=== PATIENT | male | born 1990 | race African-American/Black ===

== ENCOUNTER 2016-07-31 00:14 | Emergency (ER) | payer SELFPAY ==
[~2016-07-31] VITALS: Ht 172.7 cm; Wt 73.0 kg
[~2016-07-31 00:14] MED LIST: ALBU6.7H INH; DOXY100T PO; MEDR4PAK3 PO
[2016-07-31 00:15] VITALS: BP 116/63; PULSE 59; RESP 16; TEMP 98; O2SAT 99
[2016-07-31] MEDS ORDERED: ALBUAER3 INH (00:32)
--- NOTE | 2016-07-31 00:32 | PD ---
HPI Chief Complaint: Respiratory Symptoms Time Seen by Provider: 00:30 Travel History International Travel<30 days: No Contact w/Intl Traveler<30days: No Traveled to known affect area: No History of Present Illness HPI 26-year-old male with history of asthma presents to the emergency department requesting a refill of his albuterol inhaler. Patient states that he lost it yesterday. Denies any chest pain or tightness. No difficulty breathing. No recent illnesses, fever, or chills. He simply wants a refill. PFSH Past Medical History Asthma: Yes Diminished Hearing: No Respiratory: Yes (ASTHMA) Social History Alcohol Use: Yes (OCC) Tobacco Use: Yes (OCC) Substance Use: No Allergies-Medications (Allergen,Severity, Reaction): Coded Allergies: No Known Allergies (Unverified , 07/31/16) Reported Meds & Prescriptions Reported Meds & Active Scripts Active Proair Hfa 8.5 GM Inh (Albuterol Sulfate) 90 Mcg/Act Aer 2 Puff INH Q4-6H PRN 108 mcg/actuation Medrol Dosepak (Methylprednisolone) 4 Mg Christ 4 Mg PO DIRECTED TAKE DIRECTED Proventil Hfa (Albuterol Sulfate) 6.7 Gm Aero 2 Puff INH Q6H PRN * SHAKE WELL BEFORE USE * Doxycycline Hyclate 100 mg (Doxycycline Hyclate) 100 Mg Tab 1 Tab PO Q12H 10 Days Review of Systems Except as stated in HPI: all other systems reviewed are Neg Physical Exam Narrative GENERAL: Well-nourished, well-developed male patient, ambulatory and in no acute distress. SKIN: Focused skin assessment warm/dry. HEAD: Normocephalic. EYES: No scleral icterus. No injection or drainage. NECK: Supple, trachea midline. No JVD or lymphadenopathy. CARDIOVASCULAR: Regular rate and rhythm without murmurs, gallops, or rubs. RESPIRATORY: Breath sounds equal bilaterally. No accessory muscle use. GASTROINTESTINAL: Abdomen soft, non-tender, nondistended. MUSCULOSKELETAL: No cyanosis, or edema. BACK: Nontender without obvious deformity. No CVA tenderness. Data Data Last Documented VS Vital Signs Date Time Temp Pulse Resp B/P Pulse Ox O2 Delivery O2 Flow Rate FiO2 07/31/16 00:15 98.0 59 16 116/63 99 MDM Medical Decision Making Medical Screen Exam Complete: Yes Emergency Medical Condition: Yes Medical Record Reviewed: Yes Differential Diagnosis Medication refill versus asthma versus asthma exacerbation versus bronchospasm Narrative Course 26-year-old male presents to emergency department for evaluation, requesting a refill of his albuterol inhaler. Patient appears well and without distress. He 'll be given a prescription for pro-air. He is encouraged to take it as directed and to follow-up with the primary care provider. He agrees to return immediately with any acute worsening of symptoms. Diagnosis Primary Impression: Asthma Qualified Code: J45.20 - Mild intermittent asthma without complication Additional Impression: Medication refill Referrals: Primary Care Physician Patient Instructions: Asthma (ED), General Instructions Additional Instructions: Take medication as prescribed Follow-up with a primary care provider Return immediately to the emergency department with any acute worsening symptoms Med/Other Pt SpecificInfo: Prescription(s) given Scripts Albuterol 8.5 GM Inh (Proair Hfa 8.5 GM Inh)90 Mcg/Act Aer2 Puff INH Q4-6H PRN ( SHORTNESS OF BREATH) #1 INHALER Ref 0 108 mcg/actuation Prov:Vita Toribio 07/31/16 Disposition: 01 DISCHARGE HOME Condition: Stable Vita Toribio July 31, 2016 00:32
== END 2016-07-31 01:17 | disposition home or self-care (01) ==
LOC: NEPK 00:14
DX: J45.909 Unspecified asthma, uncomplicated (principal); Z76.0 Encounter for issue of repeat prescription; Z72.0 Tobacco use
CPT/HCPCS: 99281

== ENCOUNTER 2017-01-08 05:20 | Emergency (ER) | payer SELFPAY ==
[~2017-01-08] VITALS: Ht 172.7 cm; Wt 70.0 kg
[~2017-01-08 05:20] MED LIST changes: +ALBUAER3 INH
[2017-01-08 05:25] VITALS: PULSE 61; RESP 20; TEMP 97.8; O2SAT 99
[2017-01-08 05:26] VITALS: BP 109/70
--- NOTE | 2017-01-08 05:40 | PD ---
HPI Chief Complaint: Respiratory Symptoms Time Seen by Provider: 05:35 Travel History International Travel<30 days: No Contact w/Intl Traveler<30days: No Traveled to known affect area: No History of Present Illness HPI 26-year-old male came to the emergency room with history of sudden onset shortness of breath about an hour ago. Patient has history of asthma. Patient says it felt like his asthma but he ran out of his inhaler. Vital signs were stable. No history of fever or chills. Patient is not a smoker. He has had multiple admissions in the past including intensive care and was intubated. He has not had any admissions this year. [facility] Past Medical History Narrative Medical List of his past medical, surgical, social and family history is reviewed from the nursing note. Asthma: Yes Diminished Hearing: No Respiratory: Yes (ASTHMA) Past Surgical History Surgical History: No Previous Surgery Social History Alcohol Use: Yes (OCC) Tobacco Use: No Substance Use: No Allergies-Medications (Allergen,Severity, Reaction): Coded Allergies: No Known Allergies (Unverified , 01/08/17) Comments No known drug allergies. Reported Meds & Prescriptions Reported Meds & Active Scripts Active Prednisone 20 Mg Tab 20 Mg PO BID 5 Days Ventolin Hfa 18 GM Inh (Albuterol Sulfate) 90 Mcg/Act Aer 2 Puff INH Q4-6H PRN Proair Hfa 8.5 GM Inh (Albuterol Sulfate) 90 Mcg/Act Aer 2 Puff INH Q4-6H PRN 108 mcg/actuation Medrol Dosepak (Methylprednisolone) 4 Mg Christ 4 Mg PO DIRECTED TAKE DIRECTED Proventil Hfa (Albuterol Sulfate) 6.7 Gm Aero 2 Puff INH Q6H PRN * SHAKE WELL BEFORE USE * Doxycycline Hyclate 100 mg (Doxycycline Hyclate) 100 Mg Tab 1 Tab PO Q12H 10 Days Narrative Medication List of home medications reviewed from the nursing note. Review of Systems Except as stated in HPI: all other systems reviewed are Neg Respiratory: Positive: Shortness of Breath, Wheezing Physical Exam Narrative GENERAL: Awake, alert, moderate distress SKIN: Focused skin assessment warm/dry. HEAD: Atraumatic. Normocephalic. EYES: Pupils equal and round. No scleral icterus. No injection or drainage. ENT: No nasal bleeding or discharge. Mucous membranes pink and moist. NECK: Trachea midline. No JVD. CARDIOVASCULAR: Regular rate and rhythm. No murmur appreciated. RESPIRATORY: Decreased air entry bilaterally with end expiratory wheeze. Intercostal retraction GASTROINTESTINAL: Abdomen soft, non-tender, nondistended. Hepatic and splenic margins not palpable. MUSCULOSKELETAL: No obvious deformities. No clubbing. No cyanosis. No edema. NEUROLOGICAL: Awake and alert. No obvious cranial nerve deficits. Motor grossly within normal limits. Normal speech. PSYCHIATRIC: Appropriate mood and affect; insight and judgment normal. Data Data Last Documented VS Orders Orders Ecg Monitoring (01/08/17 05:43) Iv Access Insert/Monitor (01/08/17 05:43) Oximetry (01/08/17 05:43) Oxygen Administration (01/08/17 05:43) Prednisone (Deltasone) (01/08/17 05:45) Albuterol-Ipratropium Neb (Duoneb Neb) (01/08/17 05:45) Sodium Chloride 0.9% Flush (Ns Flush) (01/08/17 05:45) Ed Discharge Order (01/08/17 07:21) [facility] Medical Decision Making Medical Screen Exam Complete: Yes Emergency Medical Condition: Yes Medical Record Reviewed: Yes Differential Diagnosis Acute asthma exacerbation Narrative Course 6:06 AM patient was given 3 duo nebs [id number] and by mouth prednisone. I' ll reassess him in a bit. 7:19 AM patient says he feels much better. Oxygen saturation is 98%. Chest sounds clear with good air entry bilaterally. I'll discharge him home. Procedures EKG Prior to Arrival: No Diagnosis Primary Impression: Acute asthma exacerbation Qualified Codes: J45.901 - Unspecified asthma with (acute) exacerbation Referrals: Primary Care Physician 2 days Additional Instructions: Return to the ER if the condition worsens or any other new concerns. Otherwise follow-up with your primary care. Take 2 puffs of albuterol inhaler every 4-6 hours till symptoms are gone. Take the medication as per the prescription direction. Follow-up with your primary care. Med/Other Pt SpecificInfo: Prescription(s) given Scripts Prednisone (Prednisone) 20 Mg Tab 20 MG PO BID for 5 Days, #10 TAB 0 Refills Prov: Terrence Neville MD 01/08/17 Albuterol 18 GM Inh (Ventolin Hfa 18 GM Inh) 90 Mcg/Act Aer 2 PUFF INH Q4-6H Y for SHORTNESS OF BREATH, #1 INHALER 0 Refills Prov: Terrence Neville MD 01/08/17 Disposition: 01 DISCHARGE HOME Condition: Stable Terrence Neville MD Jan 08, 2017 05:40
[2017-01-08] MEDS ORDERED: SODIUM CHLORIDE 0.9% FLUSH 10 ML FLUSH IVF PRN (05:45)
[2017-01-08] MEDS ORDERED: predniSONE 20 MG TAB PO ONE (05:45)
[2017-01-08] MEDS: RESP: ALBUTEROL 2.5 MG/IPRATROPIUM 0.5 MG NEB (SCH) INH ×2 (05:56→05:57)
[2017-01-08] MEDS ORDERED: VENTAER INH (07:21)
[2017-01-08] MEDS ORDERED: PRED20 PO (07:21)
== END 2017-01-08 07:28 | disposition home or self-care (01) ==
LOC: NEPE 05:20
DX: J45.901 Unspecified asthma with (acute) exacerbation (principal); Z79.899 Other long term (current) drug therapy
CPT/HCPCS: 94640; 94664; 99284

== ENCOUNTER 2017-02-24 19:42 | Emergency (ER) | payer SELFPAY ==
[~2017-02-24 19:42] MED LIST changes: +PRED20 PO; +VENTAER INH
[2017-02-24 19:44] VITALS: BP 128/81; PULSE 98; RESP 18; TEMP 99.1; O2SAT 96
--- NOTE | 2017-02-24 20:13 | PD ---
HPI Chief Complaint: Respiratory Symptoms Time Seen by Provider: 19:59 Travel History International Travel<30 days: No Contact w/Intl Traveler<30days: No Traveled to known affect area: No History of Present Illness HPI PATIENT HAS HAD PROD COUGH OF YELLOW SPUTUM OVER LAST 2 DAYS, IS NOT IMPROVING, AND TODAY DEVELOPED CHILLS, AND A FEVER AT HOME. ALL:DENIES PMHX:ASTHMA PSHX:DENIES PFSH Past Medical History Asthma: Yes Diminished Hearing: No Respiratory: Yes (ASTHMA) Past Surgical History Surgical History: No Previous Surgery Social History Alcohol Use: Yes (OCC) Tobacco Use: No Substance Use: No Allergies-Medications (Allergen,Severity, Reaction): Coded Allergies: No Known Allergies (Unverified Allergy, Unknown, 02/24/17) Reported Meds & Prescriptions Reported Meds & Active Scripts Active Prednisone 20 Mg Tab 20 Mg PO BID 5 Days Ventolin Hfa 18 GM Inh (Albuterol Sulfate) 90 Mcg/Act Aer 2 Puff INH Q4-6H PRN Proair Hfa 8.5 GM Inh (Albuterol Sulfate) 90 Mcg/Act Aer 2 Puff INH Q4-6H PRN 108 mcg/actuation Medrol Dosepak (Methylprednisolone) 4 Mg Christ 4 Mg PO DIRECTED TAKE DIRECTED Proventil Hfa (Albuterol Sulfate) 6.7 Gm Aero 2 Puff INH Q6H PRN * SHAKE WELL BEFORE USE * Doxycycline Hyclate 100 mg (Doxycycline Hyclate) 100 Mg Tab 1 Tab PO Q12H 10 Days Review of Systems Except as stated in HPI: all other systems reviewed are Neg General / Constitutional: Positive: Fever, Chills Eyes: No: Visual changes HENT: No: Headaches Cardiovascular: No: Chest Pain or Discomfort Respiratory: Positive: Cough Gastrointestinal: No: Abdominal Pain Genitourinary: No: Dysuria Musculoskeletal: No: Pain Skin: No Rash Neurologic: No: Weakness Psychiatric: No: Depression Endocrine: No: Polydipsia Hematologic/Lymphatic: No: Easy Bruising Physical Exam Narrative GENERAL: SKIN: Warm and dry. HEAD: Atraumatic. Normocephalic. EYES: Pupils equal and round. No scleral icterus. No injection or drainage. ENT: No nasal bleeding or discharge. Mucous membranes pink and moist. NECK: Trachea midline. No JVD. CARDIOVASCULAR: Regular rate and rhythm. RESPIRATORY: No accessory muscle use. Clear to auscultation. Breath sounds equal bilaterally. MILD WHEEZING GASTROINTESTINAL: Abdomen soft, non-tender, nondistended. Hepatic and splenic margins not palpable. MUSCULOSKELETAL: Extremities without clubbing, cyanosis, or edema. No obvious deformities. NEUROLOGICAL: Awake and alert. No obvious cranial nerve deficits. Motor grossly within normal limits. Five out of 5 muscle strength in the arms and legs. Normal speech. PSYCHIATRIC: Appropriate mood and affect; insight and judgment normal. Data Data Last Documented VS Vital Signs Date Time Temp Pulse Resp B/P (MAP) Pulse Ox O2 Delivery O2 Flow Rate FiO2 02/24/17 20:57 100.3 02/24/17 20:28 100 Nasal Cannula 4.00 02/24/17 20:01 28 02/24/17 19:44 98 Orders Orders Ecg Monitoring (02/24/17 20:03) Oximetry (02/24/17 20:03) Oxygen Administration (02/24/17 20:03) Albuterol Neb (Albuterol Neb) (02/24/17 20:15) Budesonide Neb (Pulmicort Respule Neb) (02/24/17 20:15) Chest, Pa & Lat (02/24/17 20:03) Levofloxacin (Levaquin) (02/24/17 21:30) MDM Medical Decision Making Medical Screen Exam Complete: Yes Emergency Medical Condition: Yes Medical Record Reviewed: Yes Interpretation(s) INITIAL PULSE OX ON RA READ NORMAL AT 96% WITH AN EXCELLENT PLETH WAVE Differential Diagnosis BRONCHITIS V PNA V ASTHMA EXACERBATION Narrative Course ALTHOUGH CXR NEG FOR CONSOLIDATION, CLINICALLY C/W EARLY PNA, WILL D/C ON ABX, NEBULIZER AND INHALER Diagnosis Primary Impression: Pneumonitis Additional Impression: Asthma exacerbation Qualified Codes: J45.901 - Unspecified asthma with (acute) exacerbation Patient Instructions: Asthma (ED), General Instructions, Pneumonitis (ED) Scripts Budesonide Neb (Budesonide Neb) 0.5 Mg/2 Ml Neb 0.5 MG NEB DAILY NEB for Breathing Treatment, #3 NEBULE 0 Refills Prov: Christopher Rogel MD 02/24/17 Albuterol 18 GM Inh (Ventolin Hfa 18 GM Inh) 90 Mcg/Act Aer 2 PUFF INH Q4-6H Y for SHORTNESS OF BREATH, #1 INHALER 0 Refills Prov: Christopher Rogel MD 02/24/17 Albuterol Neb (Albuterol Neb) 2.5 Mg/3 Ml Neb 2.5 MG NEB Q4HR NEB for Breathing Treatment, #60 NEBULE 0 Refills While awake Prov: Christopher Rogel MD 02/24/17 Ciprofloxacin (Cipro) 500 Mg Tab 500 MG PO BID for Infection for 7 Days, #14 TAB 0 Refills Prov: Christopher Rogel MD 02/24/17 Disposition: 01 DISCHARGE HOME Condition: Stable Christopher Rogel MD Feb 24, 2017 20:13
[2017-02-24] MEDS ORDERED: RESP: BUDESONIDE 0.5 MG/2 ML NEB NEB ONE (20:15)
[2017-02-24 20:28] VITALS: O2SAT 100
[2017-02-24] MEDS: RESP: ALBUTEROL 2.5 MG/3 ML NEB (SCH) INH ×2 (20:28→20:29)
[2017-02-24 20:57] VITALS: TEMP 100.3
[2017-02-24] MEDS ORDERED: LEVOFLOXACIN 750 MG TAB PO ONE (21:30)
--- NOTE | 2017-02-24 21:33 | RADRPT ---
EXAM DATE/TIME: 02/24/2017 21:03 [place] COMPARISON: No previous studies available for comparison. INDICATIONS : Short of breath. MEDICAL HISTORY : None. SURGICAL HISTORY : None. ENCOUNTER: Initial ACUITY: 1 day PAIN SCORE: 0/10 LOCATION: Bilateral chest FINDINGS: PA and lateral views of the chest demonstrate the lungs to be symmetrically aerated without evidence of mass, infiltrate or effusion. The cardiomediastinal contours are unremarkable. Osseous structure s are intact. CONCLUSION: 1. No acute findings. Tristian Bravo MD on February 24, 2017 at 21:30 Board Certified Radiologist. This report was verified electronically.
[2017-02-24 21:39] VITALS: TEMP 98.9
[2017-02-24] MEDS ORDERED: VENTAER INH (21:42)
[2017-02-24] MEDS ORDERED: CIPR-9 PO (21:42)
[2017-02-24] MEDS ORDERED: ALBU0.08 NEB (21:42)
[2017-02-24] MEDS ORDERED: BUDE0.5S NEB (21:42)
[2017-02-24 22:28] VITALS: BP 92/53; PULSE 120; RESP 18; O2SAT 100
== END 2017-02-24 22:31 | disposition home or self-care (01) ==
LOC: NEPD 19:42
DX: J18.9 Pneumonia, unspecified organism (principal); J45.901 Unspecified asthma with (acute) exacerbation
CPT/HCPCS: 71020; 94640; 94664; 99284; J7613; J7626

== ENCOUNTER 2017-03-24 04:43 | Emergency (ER) | payer SELFPAY ==
[~2017-03-24] VITALS: Ht 170.2 cm; Wt 72.0 kg
[~2017-03-24 04:43] MED LIST changes: +ALBU0.08 NEB; +BUDE0.5S NEB; +CIPR-9 PO
[2017-03-24 04:45] VITALS: BP 141/58; PULSE 68; RESP 16; TEMP 97.8; O2SAT 97
[2017-03-24 04:56] VITALS: RESP 17; O2SAT 97
[2017-03-24] MEDS ORDERED: ALBU0.08 NEB (05:00)
[2017-03-24] MEDS ORDERED: VENTAER INH (05:00)
[2017-03-24] MEDS ORDERED: PRED20 PO (05:00)
[2017-03-24] MEDS ORDERED: predniSONE 50 MG TAB PO ONE (05:00)
--- NOTE | 2017-03-24 05:00 | PD ---
HPI Chief Complaint: Respiratory Symptoms Time Seen by Provider: 04:55 Travel History International Travel<30 days: No Contact w/Intl Traveler<30days: No Traveled to known affect area: No History of Present Illness HPI 26-year-old male with history of asthma presents to the emergency department for complaint of shortness of breath. Symptoms been present this evening. Patient is out of his inhaler. Patient does not voice any other concerns or complaints. No productive cough. No fever. No chest pain. No report of nausea vomiting abdominal pain or flank pain. Patient is a nonsmoker. No substance use. Patient needs medication refill. PFSH Past Medical History Narrative Medical asthma; no tobacco use; nursing notes reviewed Asthma: Yes Diminished Hearing: No Respiratory: Yes (ASTHMA) Immunizations Current: Yes Tetanus Vaccination: > 5 Years Influenza Vaccination: No Social History Alcohol Use: Yes (OCC) Tobacco Use: No Substance Use: No Allergies-Medications (Allergen,Severity, Reaction): Coded Allergies: No Known Allergies (Unverified Allergy, Unknown, 03/24/17) Reported Meds & Prescriptions Reported Meds & Active Scripts Active Ventolin Hfa 18 GM Inh (Albuterol Sulfate) 90 Mcg/Act Aer 2 Puff INH Q4-6H PRN Albuterol Neb (Albuterol Sulfate) 2.5 Mg/3 Ml Neb 2.5 Mg NEB Q4HR NEB PRN Prednisone 20 Mg Tab 20 Mg PO DAILY Budesonide Neb 0.5 Mg/2 Ml Neb 0.5 Mg NEB DAILY NEB Ventolin Hfa 18 GM Inh (Albuterol Sulfate) 90 Mcg/Act Aer 2 Puff INH Q4-6H PRN Albuterol Neb (Albuterol Sulfate) 2.5 Mg/3 Ml Neb 2.5 Mg NEB Q4HR NEB While awake Ventolin Hfa 18 GM Inh (Albuterol Sulfate) 90 Mcg/Act Aer 2 Puff INH Q4-6H PRN Proair Hfa 8.5 GM Inh (Albuterol Sulfate) 90 Mcg/Act Aer 2 Puff INH Q4-6H PRN 108 mcg/actuation Review of Systems Except as stated in HPI: all other systems reviewed are Neg Physical Exam Narrative GENERAL: Well-developed well-nourished pleasant male in no acute distress obvious moderate respiratory distress SKIN: Warm and dry. HEAD: Normocephalic. EYES: No scleral icterus. No injection or drainage. NECK: Supple, trachea midline. No JVD or lymphadenopathy. CARDIOVASCULAR: Regular rate and rhythm without murmurs, gallops, or rubs. RESPIRATORY: Breath sounds equal bilaterally diminished bilaterally with expiratory wheeze. No accessory muscle use. GASTROINTESTINAL: Abdomen soft, non-tender, nondistended. MUSCULOSKELETAL: No cyanosis, or edema. BACK: Nontender without obvious deformity. No CVA tenderness. Data Data Last Documented VS Vital Signs Date Time Temp Pulse Resp B/P (MAP) Pulse Ox O2 Delivery O2 Flow Rate FiO2 03/24/17 04:56 73 17 Room Air 03/24/17 04:56 97 03/24/17 04:45 97.8 Orders Orders Oximetry (03/24/17 04:55) Albuterol-Ipratropium Neb (Duoneb Neb) (03/24/17 05:00) Prednisone (Deltasone) (03/24/17 05:00) MDM Medical Decision Making Medical Screen Exam Complete: Yes Emergency Medical Condition: Yes Medical Record Reviewed: Yes Differential Diagnosis Exacerbation asthma, bronchitis, pneumonia, pneumothorax, medication refill Narrative Course 26-year-old male with history of known asthma presents with exacerbation after being out of chronic bronchodilator therapy. Patient given oral dose of redness and 50 mg and DuoNeb updrafts 3 At 5:32 AM upon reexamination lung sounds are clear to auscultation and patient is desirous of being discharged to home without further evaluation. Patient is stable for outpatient management at this time is provided refill of prescriptions. Diagnosis Primary Impression: Asthma Additional Impression: Medication refill Referrals: Primary Care Physician call for appointment Patient Instructions: General Instructions Additional Instructions: Increase fluid hydration Take medication as prescribed Follow-up with primary care provider Return to the emergency department for a concerns or change in condition Med/Other Pt SpecificInfo: Prescription(s) given Scripts Albuterol 18 GM Inh (Ventolin Hfa 18 GM Inh) 90 Mcg/Act Aer 2 PUFF INH Q4-6H Y for SHORTNESS OF BREATH, #1 INHALER 0 Refills Prov: Preethi Sanchez MD 03/24/17 Albuterol Neb (Albuterol Neb) 2.5 Mg/3 Ml Neb 2.5 MG NEB Q4HR NEB Y for SHORTNESS OF BREATH, #60 NEBULE 0 Refills Prov: Preethi Sanchez MD 03/24/17 Prednisone (Prednisone) 20 Mg Tab 20 MG PO DAILY, #4 TAB 0 Refills Prov: Preethi Sanchez MD 03/24/17 Disposition: 01 DISCHARGE HOME Condition: Stable Preethi Sanchez MD Mar 24, 2017 05:00
[2017-03-24] MEDS: RESP: ALBUTEROL 2.5 MG/IPRATROPIUM 0.5 MG NEB (SCH) INH (05:02)
[2017-03-24 06:00] VITALS: O2SAT 100
== END 2017-03-24 06:03 | disposition home or self-care (01) ==
LOC: NEPC 04:43
DX: J45.909 Unspecified asthma, uncomplicated (principal); Z76.0 Encounter for issue of repeat prescription; Z79.51 Long term (current) use of inhaled steroids
CPT/HCPCS: 94640; 94664; 99284; J7512

== ENCOUNTER 2017-05-12 19:55 | Emergency (ER) | payer SELFPAY ==
[~2017-05-12 19:55] MED LIST changes: -ALBU6.7H INH; -CIPR-9 PO; -DOXY100T PO; -MEDR4PAK3 PO
[2017-05-12 20:03] VITALS: BP 105/72; PULSE 102; RESP 22; TEMP 98.4
[2017-05-12 20:05] VITALS: O2SAT 94
[2017-05-12] MEDS ORDERED: SODIUM CHLORIDE 0.9% FLUSH 10 ML FLUSH IVF PRN (20:15)
[2017-05-12] MEDS ORDERED: methylPREDNISolone SOD SUCC 125 MG/2 ML VIAL IV PUSH ONE (20:15)
--- NOTE | 2017-05-12 20:15 | PD ---
HPI . Shortness of breath Chief Complaint: Respiratory Symptoms Time Seen by Provider: 20:02 Travel History International Travel<30 days: No Contact w/Intl Traveler<30days: No Traveled to known affect area: No History of Present Illness HPI Patient presents with chief complaint of shortness of breath. Onset is today. He has a history of asthma. He states that he has used his MDI multiple times today but is not getting any better. He has used his nebulizer machine once. No productive cough and no fever. Symptoms are moderate to severe with no obvious modifying factors. Patient states that he has been previously intubated and flown to [place] because of severe asthma. He admits that he is out of all of his medicines. PFSH Past Medical History Asthma: Yes Diminished Hearing: No Respiratory: Yes (ASTHMA) Immunizations Current: Yes Tetanus Vaccination: > 5 Years Influenza Vaccination: Yes Past Surgical History Surgical History: No Previous Surgery Social History Alcohol Use: Yes (OCC) Tobacco Use: No Substance Use: No Allergies-Medications (Allergen,Severity, Reaction): Coded Allergies: No Known Allergies (Unverified Allergy, Unknown, 05/12/17) Reported Meds & Prescriptions Reported Meds & Active Scripts Active Budesonide Neb 0.5 Mg/2 Ml Neb 0.5 Mg NEB DAILY NEB Ventolin Hfa 18 GM Inh (Albuterol Sulfate) 90 Mcg/Act Aer 2 Puff INH Q4-6H PRN Albuterol Neb (Albuterol Sulfate) 2.5 Mg/3 Ml Neb 2.5 Mg NEB Q4HR NEB While awake Review of Systems Except as stated in HPI: all other systems reviewed are Neg General / Constitutional: No: Fever, Chills Respiratory: Positive: Shortness of Breath, Wheezing Physical Exam Narrative GENERAL: Awake and alert. SKIN: Warm and dry. HEAD: Normocephalic/atraumatic. EYES: Pupils are equal. Extraocular movements are intact. Delete NECK: Normal range of motion. CARDIOVASCULAR: Regular rate and rhythm. RESPIRATORY: Positive retractions and use of accessory muscles. Breath sounds are diminished. Diffuse I&E wheezing. MUSCULOSKELETAL: Atraumatic. NEUROLOGICAL: Nonfocal. PSYCHIATRIC: Appropriate mood and affect. Data Data Last Documented VS Vital Signs Date Time Temp Pulse Resp B/P (MAP) Pulse Ox O2 Delivery O2 Flow Rate FiO2 05/12/17 21:21 120 20 118/58 (78) 95 Room Air 05/12/17 20:16 2.00 05/12/17 20:03 98.4 Orders Orders Basic Metabolic Panel (Bmp) (05/12/17 20:03) Complete Blood Count With Diff (05/12/17 20:03) Chest, Single Ap (05/12/17 20:03) Ecg Monitoring (05/12/17 20:03) Iv Access Insert/Monitor (05/12/17 20:03) Oximetry (05/12/17 20:03) Oxygen Administration (05/12/17 20:03) Methylprednisolone So Succ Inj (Solumedr (05/12/17 20:15) Albuterol-Ipratropium Neb (Duoneb Neb) (05/12/17 20:15) Sodium Chloride 0.9% Flush (Ns Flush) (05/12/17 20:15) Albuterol-Ipratropium Neb (Duoneb Neb) (05/12/17 21:30) Labs Laboratory Tests Test 05/12/17 20:00 White Blood Count 9.9 TH/MM3 Red Blood Count 5.14 MIL/MM3 Hemoglobin 15.1 GM/DL Hematocrit 46.9 % Mean Corpuscular Volume 91.2 FL Mean Corpuscular Hemoglobin 29.4 PG Mean Corpuscular Hemoglobin Concent 32.3 % Red Cell Distribution Width 12.8 % Platelet Count 215 TH/MM3 Mean Platelet Volume 9.6 FL Neutrophils (%) (Auto) 70.6 % Lymphocytes (%) (Auto) 15.8 % Monocytes (%) (Auto) 7.9 % Eosinophils (%) (Auto) 4.3 % Basophils (%) (Auto) 1.4 % Neutrophils # (Auto) 7.0 TH/MM3 Lymphocytes # (Auto) 1.6 TH/MM3 Monocytes # (Auto) 0.8 TH/MM3 Eosinophils # (Auto) 0.4 TH/MM3 Basophils # (Auto) 0.1 TH/MM3 CBC Comment DIFF FINAL Differential Comment Blood Urea Nitrogen 10 MG/DL Creatinine 1.00 MG/DL Random Glucose 80 MG/DL Calcium Level 9.2 MG/DL Sodium Level 139 MEQ/L Potassium Level 3.3 MEQ/L Chloride Level 105 MEQ/L Carbon Dioxide Level 24.9 MEQ/L Anion Gap 9 MEQ/L Estimat Glomerular Filtration Rate 109 ML/MIN MDM Medical Decision Making Medical Screen Exam Complete: Yes Emergency Medical Condition: Yes Medical Record Reviewed: Yes (I have reviewed his records dating back to 2003. He has never been admitted or transferred from our facility. He has never been intubated in our facility.) Differential Diagnosis Differential diagnosis of dyspnea includes but is not limited to congestive heart failure, pneumonia, wheezing, pneumothorax, pulmonary embolism Narrative Course This patient presents with a chief complaint of dyspnea. Onset today. He has a history of asthma. His lung exam is compatible with a moderate to severe asthma attack. He is being treated with IV Solu-Medrol and stacked duo nebs. The patient has refused his blood gas and is also refusing to wear his oxygen. Chest x-ray is negative per the radiologist. It has been independently reviewed by me. CBC & BMP Diagram 05/12/17 20:00 Calcium Level 9.2 On repeat examination the patient is a little bit improved but still has significant wheezing. He is tremulous and tachycardic from the nebulizer treatments. We will wait a few minutes and then give him another set of nebs. Patient is on treatment #5 currently. He has been given a break between some of the treatments. His sats are still in the low 90s. He reports that he feels much better. He is complaining that he has been here too long. He is not allowing the respiratory therapist to give him his third treatment in this current round of treatments. He does state that he will stay here for a while longer and let us continue to treat him. His resting sats are now greater than 95%. He is about to receive his sixth nebulizer treatment. Will be allowed to go home following this treatment. Critical Care Narrative Aggregate critical care time was 45 minutes. Time to perform other separately billable procedures was not included in the critical care time. My time did not include minutes spent treating any other patients simultaneously or on activities that did not directly contribute to the patient's treatment. The services I provided to this patient were to treat and/or prevent clinically significant deterioration due to asthma with hypoxia I provided critical care services requiring my management, as noted below: Chart data review, documentation time, medication orders and management, vital sign assessments/reviewing monitor data, ordering and reviewing lab tests, ordering and interpreting/reviewing x-rays and diagnostic studies, care of the patient and discussion of the patient with the admitting physicians Diagnosis Primary Impression: Asthma Qualified Codes: J45.901 - Unspecified asthma with (acute) exacerbation Patient Instructions: Asthma (DC), General Instructions Med/Other Pt SpecificInfo: Prescription(s) given Scripts Prednisone (Prednisone) 50 Mg Tab 50 MG PO DAILY for 5 Days, #5 TAB 0 Refills Prov: Marisela James MD 05/12/17 Budesonide Neb (Budesonide Neb) 0.5 Mg/2 Ml Neb 0.5 MG NEB DAILY NEB for Breathing Treatment, #3 NEBULE 0 Refills Prov: Marisela James MD 05/12/17 Albuterol 18 GM Inh (Ventolin Hfa 18 GM Inh) 90 Mcg/Act Aer 2 PUFF INH Q4-6H Y for SHORTNESS OF BREATH, #1 INHALER 0 Refills Prov: Marisela James MD 05/12/17 Albuterol Neb (Albuterol Neb) 2.5 Mg/3 Ml Neb 2.5 MG NEB Q4HR NEB for Breathing Treatment, #60 NEBULE 0 Refills While awake Prov: Marisela James MD 05/12/17 Disposition: 01 DISCHARGE HOME Condition: Stable Marisela James MD May 12, 2017 20:15
[2017-05-12 20:16] VITALS: BP 105/72; PULSE 102; RESP 22; O2SAT 95
[2017-05-12] MEDS: RESP: ALBUTEROL 2.5 MG/IPRATROPIUM 0.5 MG NEB (SCH) INH ×4 (20:17→22:41)
--- NOTE | 2017-05-12 20:28 | RADRPT ---
EXAM DATE/TIME: 05/12/2017 20:07 [facility] COMPARISON: No previous studies available for comparison. INDICATIONS : Shortness of breath. MEDICAL HISTORY : None. SURGICAL HISTORY : None. ENCOUNTER: Initial ACUITY: 1 day PAIN SCORE: 0/10 LOCATION: Bilateral chest FINDINGS: A single view of the chest demonstrates the lungs to be symmetrically aerated without evidence of mas s, infiltrate or effusion. The cardiomediastinal contours are unremarkable. Osseous structures are intact. CONCLUSION: No acute disease. Tristian Bravo MD on May 12, 2017 at 20:27 Board Certified Radiologist. This report was verified electronically.
[2017-05-12 20:35] LABS: CALCIUM 9.2 MG/DL (8.5-10.1)
[2017-05-12 20:36] LABS: BICARBONATE 24.9 MEQ/L (21.0-32.0)
[2017-05-12 21:17] LABS: BASOPHIL # 0.1 TH/MM3 (0-0.2); BASOPHIL % 1.4 % (0.0-2.0); EOSINOPHIL # 0.4 TH/MM3 (0-0.4); EOSINOPHIL % 4.3 % (0.0-4.0); HEMATOCRIT 46.9 % (39.0-51.0); HEMOGLOBIN 15.1 GM/DL (13.0-17.0); LYMPH % 15.8 % (9.0-44.0); LYMPHOCYTE # 1.6 TH/MM3 (1.0-4.8); MEAN CELL VOLUME 91.2 FL (80.0-100.0); MEAN CORPUSCULAR HEMOGLOBIN 29.4 PG (27.0-34.0); MEAN CORPUSCULAR HGB CONC 32.3 % (32.0-36.0); MEAN PLATELET VOLUME 9.6 FL (7.0-11.0); MONO % 7.9 % (0.0-8.0); MONOCYTE # 0.8 TH/MM3 (0-0.9); NEUT % 70.6 % (16.0-70.0); PLATELET COUNT 215 TH/MM3 (150-450); RED BLOOD COUNT 5.14 MIL/MM3 (4.50-5.90); RED CELL DISTRIBUTION WIDTH 12.8 % (11.6-17.2); WHITE BLOOD COUNT 9.9 TH/MM3 (4.0-11.0)
[2017-05-12 21:21] VITALS: BP 118/58; PULSE 120; RESP 20; O2SAT 95
[2017-05-12] MEDS ORDERED: PRED50 PO (22:49)
[2017-05-12] MEDS ORDERED: ALBU0.08 NEB (22:49)
[2017-05-12] MEDS ORDERED: VENTAER INH (22:49)
[2017-05-12] MEDS ORDERED: BUDE0.5S NEB (22:49)
[2017-05-12 23:01] VITALS: BP 113/51
== END 2017-05-12 23:08 | disposition home or self-care (01) ==
LOC: PHED 19:55
DX: J45.901 Unspecified asthma with (acute) exacerbation (principal)
CPT/HCPCS: 71045; 80048; 85025; 94640; 94664; 96374; 99291; J2930

== ENCOUNTER 2017-06-02 00:50 | Emergency (ER) | payer SELFPAY ==
[~2017-06-02] VITALS: Ht 170.2 cm; Wt 72.4 kg
[~2017-06-02 00:50] MED LIST changes: -ALBUAER3 INH; -PRED20 PO; +PRED50 PO
[2017-06-02 00:58] VITALS: BP 121/93; PULSE 57; RESP 18; TEMP 97.9; O2SAT 98
[2017-06-02] MEDS ORDERED: IBUP1TAB7 PO (09:09)
[2017-06-02] MEDS ORDERED: IBUP-232 PO (09:13)
[2017-06-02] MEDS ORDERED: PENI500T PO (09:13)
[2017-06-02] MEDS ORDERED: MAGICADU2 SWISH-SWAL (09:13)
== END 2017-06-02 03:33 | disposition left against medical advice (07) ==
LOC: PHED 00:50
DX: R51 Headache (principal)
CPT/HCPCS: 99281

== ENCOUNTER 2017-06-02 08:27 | Emergency (ER) | payer SELFPAY ==
[~2017-06-02] VITALS: Ht 170.2 cm; Wt 75.0 kg
[2017-06-02 08:42] VITALS: BP 121/58; PULSE 59; RESP 15; TEMP 98.3; O2SAT 100
[2017-06-02] MEDS ORDERED: IBUP1TAB7 PO (09:09)
--- NOTE | 2017-06-02 09:12 | PD ---
HPI Chief Complaint: Oral / Dental Pain or Problem Time Seen by Provider: 09:02 Travel History International Travel<30 days: No Contact w/Intl Traveler<30days: No Traveled to known affect area: No History of Present Illness HPI 26-year-old male presents to the ED for evaluation of 24 hour history of 10/10 pain of the right lower jaw. Throbbing, worsened by chewing. Patient endorses a broken tooth in the area but states it has been asymptomatic until this time. Pain radiates towards the ear. He denies headaches, dizziness, fevers, chills , nausea, vomiting, difficulties swallowing. He does not have a dentist. No treatment attempt at home. PFSH Past Medical History Asthma: Yes Diminished Hearing: No Respiratory: Yes (ASTHMA) Immunizations Current: Yes Social History Alcohol Use: Yes (OCC) Tobacco Use: No Substance Use: No Allergies-Medications (Allergen,Severity, Reaction): Coded Allergies: No Known Allergies (Unverified Allergy, Unknown, 06/02/17) Reported Meds & Prescriptions Reported Meds & Active Scripts Active Prednisone 50 Mg Tab 50 Mg PO DAILY 5 Days Budesonide Neb 0.5 Mg/2 Ml Neb 0.5 Mg NEB DAILY NEB Ventolin Hfa 18 GM Inh (Albuterol Sulfate) 90 Mcg/Act Aer 2 Puff INH Q4-6H PRN Albuterol Neb (Albuterol Sulfate) 2.5 Mg/3 Ml Neb 2.5 Mg NEB Q4HR NEB While awake Review of Systems Except as stated in HPI: all other systems reviewed are Neg Physical Exam Narrative GENERAL: Well-nourished, well-developed AA male in no acute distress. SKIN: Warm and dry. HEAD: Normocephalic. Atraumatic. EYES: No scleral icterus. No injection or drainage. PERRLA. EOMI. ENT: Pearly chatterjee tympanic membranes bilaterally. Nasal mucosa is moist. Oropharynx without erythema, edema or exudate. DENTAL: No loose or chipped teeth. No malocclusion. Tooth #30 has a large dental caries and is broken to the gumline. The surrounding mucosa is erythematous and edematous. No drainable abscess noted. NECK: Supple, trachea midline. No JVD or lymphadenopathy. CARDIOVASCULAR: Regular rate and rhythm without murmurs, gallops, or rubs. RESPIRATORY: Breath sounds clear and equal bilaterally. No accessory muscle use. GASTROINTESTINAL: Abdomen soft, non-tender, nondistended. + Bowel sounds MUSCULOSKELETAL: No cyanosis, or edema. BACK: Nontender without obvious deformity. No CVA tenderness. Data Data Last Documented VS Vital Signs Date Time Temp Pulse Resp B/P (MAP) Pulse Ox O2 Delivery O2 Flow Rate FiO2 06/02/17 08:42 98.3 59 15 121/58 (79) 100 MDM Medical Decision Making Medical Screen Exam Complete: Yes Emergency Medical Condition: Yes Differential Diagnosis Dental caries versus dental fracture versus dental abscess versus gingivitis versus other Narrative Course 26-year-old male presents to the ED for evaluation of 24 hour history of 10/10 pain of the right lower jaw. Throbbing, worsened by chewing. Patient endorses a broken tooth in the area but states it has been asymptomatic until this time. Pain radiates towards the ear. He denies headaches, dizziness, fevers, chills , nausea, vomiting, difficulties swallowing. He does not have a dentist. Vitals reviewed. On exam. #30 has a large dental caries and is broken to the gumline. The surrounding gingiva is erythematous, edematous, tender to palpation. No drainable abscess noted. Patient has some swelling of the right cheek noted. He is prescribed penicillin VK 500 mg 4 times a day 7 days. He is prescribed Magic mouthwash when necessary up to 4 times a day. He is instructed to follow-up with a dentist. He is provided with dental resources. He is stable and discharged home. Diagnosis Primary Impression: Pain due to dental caries Referrals: Dentist Additional Instructions: Rest, hydrate. Begin antibiotics today and take them until every pill is gone. Magic mouthwash up to 4 times a day, rinse and spit. If you hold the medication in the mouth for 30 seconds to 1 minute this will make the pain medication last longer. Use 600 mg ibuprofen up to 3 times a day to treat pain. Warm salt water gargles may also help symptoms. Follow-up with the dentist as discussed. Return to the ED for any urgent or emergent medical condition. Med/Other Pt SpecificInfo: Prescription(s) given Disposition: DISCHARGE HOME Condition: Stable Leah Scott Jun 02, 2017 09:12
[2017-06-02] MEDS ORDERED: IBUP-232 PO (09:13)
[2017-06-02] MEDS ORDERED: PENI500T PO (09:13)
[2017-06-02] MEDS ORDERED: MAGICADU2 SWISH-SWAL (09:13)
== END 2017-06-02 09:44 | disposition home or self-care (01) ==
LOC: NEPK 08:27
DX: K02.9 Dental caries, unspecified (principal); J45.909 Unspecified asthma, uncomplicated; Z79.51 Long term (current) use of inhaled steroids
CPT/HCPCS: 99283